=== PATIENT | female | born 1990 | race Caucasian/White ===

== ENCOUNTER 2020-09-05 13:15 | Emergency (ER) | payer BC ==
[~2020-09-05] VITALS: Ht 175.3 cm; Wt 63.5 kg
[2020-09-05 13:21] VITALS: BP_SYST 118
[2020-09-05] MEDS ORDERED: NACL 0.9% 2,000 ML IV ONE (13:45)
[2020-09-05 13:59] LABS: BASOPHILS % (AUTO) 0.2 % (0.0-2.0); EOSINOPHILS % (AUTO) 0.1 % (0.0-4.0); HEMATOCRIT 45.2 % (36-48); LYMPHOCYTES # (AUTO) 4.5 K/uL (1.0-5.5); LYMPHOCYTES % (AUTO) 34.2 % (20.5-51.5); MEAN CORPUSCULAR HEMOGLOBIN 30 pg (27-31); MEAN CORPUSCULAR HGB CONC 33 % (32-36); MEAN CORPUSCULAR VOLUME 91 fL (79.0-98.0); MONOCYTES # (AUTO) 0.6 K/uL (0.0-1.0); MONOCYTES % (AUTO) 4.2 % (1.7-9.3); NEUTROPHILS # (AUTO) 8.1 K/uL (1.8-7.7); NEUTROPHILS % (AUTO) 61.3 % (40.0-70.0); PLATELET COUNT (AUTO) 330 K/uL (130-430); RED BLOOD CELL COUNT(AUTO) 4.95 MIL/uL (4.2-6.2); RED CELL DISTRIBUTION WIDTH 13.4 % (9.0-15.0); WHITE BLOOD COUNT (AUTO) 13.2 K/uL (4.8-10.8)
[2020-09-05 14:12] LABS: ANION GAP 13 (5-15); CALCIUM 8.8 mg/dL (8.4-11.0); CHLORIDE 108 mmol/L (98-107); CREATININE 0.85 mg/dL (0.55-1.30); GLUCOSE 85 mg/dL (70-99); POTASSIUM 3.4 mmol/L (3.5-5.1); SODIUM SERUM 146 mmol/L (136-145); UREA NITROGEN, BLOOD 13 mg/dL (8-21)
[2020-09-05] MEDS: LORazepam 2 MG/ML VIAL IVP ONE ×2 (14:13→14:58)
[2020-09-05 14:18] LABS: ALANINE AMINOTRANSFERASE 27 U/L (12-78); ALBUMIN 4.1 g/dL (3.4-4.8); ALCOHOL, BLOOD 259 mg/dL (<10); ASPARTATE AMINOTRANSFERASE 13 U/L (10-37); TOTAL BILIRUBIN 0.3 mg/dL (0.0-1.0)
[2020-09-05 14:22] LABS: ACETAMINOPHEN < 1 ug/mL (1-30); GFR AFRICAN AMERICAN 100 mL/min (>90)
[2020-09-05 14:39] LABS: CHOLESTEROL 229 mg/dL (<200); HDL CHOLESTEROL 76 mg/dL (>55); LDL CHOLESTEROL 146 mg/dL (<100); TRIGLYCERIDES 129 mg/dL (30-150)
[2020-09-05 14:55] LABS: BILIRUBIN,URINE NEGATIVE (NEGATIVE); BLOOD, URINE NEGATIVE (NEGATIVE); CLARITY/URINE CLEAR (CLEAR); COLOR,URINE YELLOW (YELLOW); GLUCOSE,URINE NEGATIVE (NEGATIVE); KETONES,URINE NEGATIVE (NEGATIVE); LEUKOCYTE ESTERASE ,URINE NEGATIVE (NEGATIVE); NITRITE, URINE NEGATIVE (NEGATIVE); PROTEIN URINE NEGATIVE (NEGATIVE); UROBILINOGEN,URINE 0.2 (0.2-1.0)
[2020-09-05 15:11] LABS: BARBITURATE, URINE NEGATIVE (NEG <=200); BENZODIAZEPINE, URINE NEGATIVE (NEG <=150); CANNABINOID, URINE NEGATIVE (NEG <=50); COCAINE, URINE NEGATIVE (NEG <=150); OPIATE, URINE NEGATIVE (NEG <=100); PHENCYCLIDINE SCREEN,URINE NEGATIVE (NEG <=25); UR TRICYCLIC ANTIDEPRESSANTS NEGATIVE (NEG <=300); URINE METHADONE NEGATIVE (NEG <=200); URINE OXYCODONE SCREEN NEGATIVE (NEG <=100); URINE PROPOXYPHENE SCREEN NEGATIVE (NEG <=300)
[2020-09-05 15:12] LABS: METHAMPHETAMINES SCREEN,URINE POSITIVE (NEG <=500); URINE AMPHETAMINE POSITIVE (NEG <=500)
[2020-09-05] MEDS ORDERED: LORazepam 2 MG/ML VIAL IVP ONE (15:15)
[2020-09-05 16:39] VITALS: BP_SYST 122
== END 2020-09-05 16:39 | disposition home or self-care (01) ==
LOC: SED 13:15
DX: L90.5 Scar conditions and fibrosis of skin (principal); F10.10 Alcohol abuse, uncomplicated; F15.10 Other stimulant abuse, uncomplicated; M79.644 Pain in right finger(s); Z88.0 Allergy status to penicillin; Y90.8 Blood alcohol level of 240 mg/100 ml or more
CPT/HCPCS: 29130; 36415; 73140; 80053; 80061; 80307; 81003; 83036; 85025; 99284; G0480; G0481; G0482; J2060; J7030